=== PATIENT | male | born 1945 | race Caucasian/White ===

== ENCOUNTER 2023-12-22 05:16 | Observation (INO) ==
--- NOTE | 2023-11-18 11:12 | PAT Medication Instructions ---
Medication Instructions Date of Service November 18, 2023 Home Medications Medication Instructions Recorded tizanidine 4 mg tablet 4 mg PO BID PRN muscle spasticity 11/27/22 #30 tabs tramadol 50 mg tablet 50 mg PO Q8H PRN pain #30 tabs 04/02/23 fenofibrate 160 mg tablet 160 mg PO QAM multivitamin 1 tab PO QAM tizanidine 4 mg tablet 4 mg PO BID PRN muscle spasticity dapagliflozin propanediol 10 mg tablet (Farxiga) 10 mg PO HS semaglutide 14 mg tablet (Rybelsus) 14 mg PO QAM tramadol 50 mg tablet 50 mg PO Q8H PRN pain simvastatin 10 mg tablet 10 mg PO QPM bupropion HCl 150 mg tablet,12 hr sustained-release (Wellbutrin SR) 150 mg PO Q AM cholecalciferol (vitamin D3) 1,250 mcg (50,000 unit) capsule 50,000 unit PO UD donepezil 5 mg tablet 5 mg PO HS metformin 1,000 mg tablet 1,000 mg PO BID omega-3 fatty acids 1 cap PO DAILY STOP taking 2 weeks before surgery (or as soon as possible if surgery is within 2 weeks) omega-3 fatty acids 1 cap PO DAILY STOP taking 3 days before surgery dapagliflozin propanediol 10 mg tablet (Farxiga) 10 mg PO HS STOP taking 24 hours before surgery fenofibrate 160 mg tablet 160 mg PO QAM DO NOT take the morning of surgery multivitamin 1 tab PO QAM semaglutide 14 mg tablet (Rybelsus) 14 mg PO QAM cholecalciferol (vitamin D3) 1,250 mcg (50,000 unit) capsule 50,000 unit PO UD metformin 1,000 mg tablet 1,000 mg PO BID Take morning of surgery With a small sip of water, OTHERWISE NOTHING TO EAT OR DRINK AFTER MIDNIGHT: tizanidine 4 mg tablet 4 mg PO BID PRN muscle spasticity (if needed) tramadol 50 mg tablet 50 mg PO Q8H PRN pain (if needed) bupropion HCl 150 mg tablet,12 hr sustained-release (Wellbutrin SR) 150 mg PO QAM Take evening before surgery tizanidine 4 mg tablet 4 mg PO BID PRN muscle spasticity (if needed) tramadol 50 mg tablet 50 mg PO Q8H PRN pain (if needed) simvastatin 10 mg tablet 10 mg PO QPM donepezil 5 mg tablet 5 mg PO HS metformin 1,000 mg tablet 1,000 mg PO BID Other Notes If you have any questions please call us at [phone] or [phone] or [phone] or [phone]
--- NOTE | 2023-11-26 14:25 | Anesthesiology Consultation ---
Date of Service November 26, 2023 Assessment & Plan (1) Encounter for pre-operative examination: - COVID positive via home test 11/21/23. Patient is masked in clinic. He states that his tested positive for COVID test last week and he had onset of runny nose 11/21/23 so completed home test which was positive. He states that 11/22/23 was fatigued and today he feels nearly back to baseline. Radiology and PAT staff were made aware. - check BSG am DOS. - Case discussed with Dr. Valle who advised that if patient's neck pain is improving 1 week prior to surgery he can proceed. - ER 11/19/23 [facility]: "...accidental fall 1 week ago. Patient states he was at a friend's house and stepped into an uneven spot of the pavement causing him to lose his balance...grabbed a hold of a van that was there additionally and then fell a short distance onto his back...head did hit a rock but did not hurt and he did not lose consciousness...last 2 days he has had some intermittent lower neck pain and mid back pain...denies any upper extremity weakness or paresthesias...denies any lower extremity weakness or paresthesias. No change in bowel or bladder function. No difficulty walking...outpatient CT of his head as ordered by PCP...denies any other recurrent fall...does admit to vigorous activity daily. After discussion and examination at bedside, patient sent for CT C-spine and CT thoracic spine. These were reassuring...prior history of a C- spine fracture which was again noted. Patient had a normal nonfocal neuro exam..no extremity weakness or paresthesias. All results were discussed with him at bedside. We did discuss ongoing symptomatic treatment, follow-up with his PCP..." Chart Review Chart Review: Acceptable Risk for Surgery (acceptable to proceed pending improvement in neck pain 1 week prior to surgery-I will contact patient at that time) and Patient seen in Pre Admission Testing History Surgery Operation Date: 12/22/23 09:05 Proposed Procedures p Left Total Knee Arthroplasty - Hamilton Doe MD Height/Weight Height: 5 ft 11 in Weight: 83.8 kg Allergies Allergy/AdvReac Type Severity Reaction Status Date / Time No Known Allergies Allergy Verified 11/17/23 10:17 Medications Home Medications Medication Instructions Recorded Confirmed Last Taken fenofibrate 160 mg tablet 160 mg PO QAM 11/18/20 11/17/23 Unknown multivitamin 1 tab PO QAM 11/18/20 11/17/23 Unknown tizanidine 4 mg tablet 4 mg PO BID PRN muscle spasticity 11/27/22 11/17/23 Unknown #30 tabs dapagliflozin propanediol 10 mg 10 mg PO HS 12/30/22 11/17/23 Unknown tablet (Farxiga) semaglutide 14 mg tablet (Rybelsus) 14 mg PO QAM 12/30/22 11/17/23 Unknown tramadol 50 mg tablet 50 mg PO Q8H PRN pain #30 tabs 04/02/23 11/17/23 Unknown simvastatin 10 mg tablet 10 mg PO QPM 05/13/23 11/17/23 Unknown bupropion HCl 150 mg tablet,12 hr 150 mg PO QAM 11/15/23 11/17/23 Unknown sustained-release (Wellbutrin SR) cholecalciferol (vitamin D3) 1,250 50,000 unit PO UD 11/17/23 11/17/23 Unknown mcg (50,000 unit) capsule donepezil 5 mg tablet 5 mg PO HS 11/17/23 11/17/23 Unknown metformin 1,000 mg tablet 1,000 mg PO BID 11/17/23 11/17/23 Unknown omega-3 fatty acids 1 cap PO DAILY 11/17/23 11/17/23 Unknown Past Medical History Medical History Anxiety BPH (benign prostatic hyperplasia) Diabetes mellitus, type 2 NIDDM Diabetic peripheral neuropathy legs History of bladder stone History of COVID-19 (~2021) home test, resolved Hyperlipidemia Kidney stones sx Osteoarthritis 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 stallings, [place] Patient denies h/o stroke, seizures, heart attack, heart failure, HTN, blood clots/DVTs or blood transfusions. 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 History of prostate [place] [facility] [place] of tonsillectomy S/P eye surgery Left eye "leaking" repair S/P left knee arthroscopy Status post laser lithotripsy of ureteral calculus Past Anesthesia History No Family Hx of Anesthesia Complications and Other (post-op urinary retention after procedure for renal stones) History of PONV No Hx of PONV and No Hx of Motion Sickness Social History Smoking Status: Former smoker tobacco type: cigarettes Smoking cigarettes per day: 1/2 ppd Do You Dip or Chew Tobacco: No Smoking End Date: 50 years ago Hx Alcohol Use: Yes Alcohol type: beer alcohol intake frequency: other Alcohol Intake Frequency Comment: once per week Hx Substance Use: Yes substance use type: former substance user and marijuana Last Used Substance Other:: remote hx. Review of Systems Snoring, denies witnessed apneas. Patient denies chest pain, shortness of breath or dyspnea on exertion. Physical Exam Vital Signs Vitals BP 116/70 P 53 SP02 98% on RA RESP 18 Physical Patient resting comfortably in chair in no acute distress, alert and oriented, responding appropriately throughout visit Full cervical extension range of motion without pain TMD 3.5 finger breadths Dentition: several missing teeth, denies chipped or loose teeth, caps/crowns, implants or bridges Lungs: normal respiratory effort. Good air movement, clear throughout to auscultation, no adventitious breath sounds Cardiac: regular rate and rhythm, no murmurs noted Carotid arteries: negative bruit bilat Lab Results Anesthesia Preop Results Results Anesthesia Widget: WBC 5.44 K/ul (4.8-10.8) 11/26/23 Hgb 14.8 g/dl (14.0-18.0) 11/26/23 Hct 44.3 % (42.0-52.0) 11/26/23 Plt 217 K/uL (130-400) 11/26/23 Na 140 mmol/L (136-145) 11/26/23 K 4.0 mmol/L (3.5-5.1) 11/26/23 Cl 106 mmol/L (98-107) 11/26/23 CO2 28 mmol/L (21-32) 11/26/23 BUN 25 mg/dl (6-23) H 11/26/23 Creat 1.02 mg/dl (0.6-1.4) 11/26/23 Glucose Level 130 mg/dl (70-99(Fasting)) H 11/26/23 PT 11.3 Seconds (9.0-12.0) 11/26/23 PTT 26 Seconds (21-31) 11/26/23 INR 1.0 (0.9-1.1) 11/26/23 HA1c 7.4 % (4.5-5.6) H 11/26/23 Urine Color Yellow 11/26/23 Urine Appearance Clear (Clear) 11/26/23 Urine pH 6.0 (4.5-7.5) 11/26/23 Urine Specific [place] 1.028 (1.000-1.030) 11/26/23 Urine Protein Negative (Negative) 11/26/23 Urine Glucose (UA) 3+ (Negative) H 11/26/23 Urine Ketones Negative (Negative) 11/26/23 Urine Blood Negative (Negative) 11/26/23 Urine Nitrite Negative (Negative) 11/26/23 Urine Bilirubin Negative (Negative) 11/26/23 Urine Urobilinogen Negative (Negative) 11/26/23 Urine Leukocyte Esterase Negative (Negative) 11/26/23 Blood Type A Negative 11/26/23 Antibody Screen NEGATIVE 11/26/23 Testing Electrocardiogram Date: 05/25/23 Sinus bradycardia, rate 57 bpm Left anterior fascicular block Chest X-Ray Date: 11/26/23 No acute cardiopulmonary findings. Cervical Spine Date: 11/19/23 No evidence of acute bony injury. Chronic degenerative changes and nonunited type II odontoid fracture again seen. Other Testing Thoracic spine CT 11/19/23 No fractures within the thoracic spine. Head CT 11/15/23 No acute intracranial abnormality.
--- NOTE | 2023-11-29 11:15 | History & Physical Report ---
Date of Service November 29, 2023 Assessment & Plan (1) Left knee DJD: Plan: PRE-OP Diagnosis: Left knee osteoarthritis Planned Procedure: Left total knee arthroplasty Plan: Patient is scheduled to undergo this procedure at the [facility] with Dr. Doe on December 22, 2023. Risks and complications of the procedure such as: Infection, bleeding, pain, scarring, nerve blood vessel damage, weakness, wound problems, stiffness, incomplete rel ief of symptoms, hardware failure, hardware loosening, wear, fracture, tendon or ligament injury, blood clots, embolism, cardiac, stroke and were explained to the patient at his visit today and informed consent for the procedure was obtained. We will need to obtain preoperative medical clearance from the patient's primary care provider. He has that appointment scheduled for November 30. Patient is scheduled to meet with anesthesia at the hospital later today. While there he will obtain a CBC with differential, complete metabolic panel, PT/INR, blood type and screen, urinalysis, urine culture and sensitivity, EKG and a chest x-ray. During today's visit we reviewed the total knee packet. I provided the patient with paperwork to obtain obtaining a handicap placard for his vehicle. I provided him with information about lectures offered by [facility] in regards to joint replacement surgery. Patient has a walker that he will bring with him on the day of surgery. I recommended that he purchase a shower chair and raised toilet seat. We discussed discharge planning from the hospital. Patient states she will most likely do in-home physical therapy for the first 2 weeks before transitioning to outpatient physical therapy. I advised the patient that he will be provided with a prescription for narcotic pain medication for postoperative pain control. We will have him on Eliquis twice daily for the first 30 days postoperatively for blood clot prevention. Patient will also be provided with an antibiotic for postoperative infection prophylaxis. Patient is scheduled for 2-week postoperative follow-up visit with Michele on January 06, 2024. This chart was completed utilizing [employer] voice recognition software. Grammatical errors, random word insertions, pronoun errors, and in complete sentences are an occasional consequence of the system. Any questions or concerns about the content, text, or information contained within the body of this dictation should be addressed directly to the physician for clarification. History of Present Illness Chief Complaint: Chief Complaint: Left knee pain Primary Care Provider: Nancy Angel MD History of Present Illness (including history relevant to procedure): This 78-year-old male presents to the clinic today for his preoperative history and physical. Patient complains of a 5 to 6-year history of medial sided left knee pain that he has been managing with Euflexxa injections. He states that he was scheduled to undergo a total right knee replacement back in 2020 but had to postpone due to family issues. Patient states he has visible malalignment of his left knee. He states that the Euflexxa injections seem to be effective for about 4 to 5 months. He feels that the malalignment in the knee is affecting his gait and also contributing to some pain in his right knee. He is elected proceed with surgical intervention at this time. Review Of Systems: A 12 point review of systems was performed is unremarkable except for those things stated in the HPI past medical history. 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 6 mm anterolisthesis L4 on L5 is new from prior. Moderate to severe facet arthrosis of the mid to lower lumbar spine. Multilevel intervertebral disc space narrowing, moderate at L3-L4 and L4-L5. Moderate spondylitic spurring.IMPRESSION:1. No acute fracture identified.2. Grade 1 anterolisthesis L4 on L5 likely secondary to chronic facet disease.3. Degenerative changes as above. 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 Extensive osteophytosis with bony erosion, predominantly involving the navicular, middle and lateral cuneiforms. Probable subluxation of the right fourth and fifth tarsometatarsal joints. 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 Allergies and Sensitivities: NKA Current Home Meds: (Last Updated 11/25 12:56) buPROPion (Wellbutrin SR 150 mg/12 hours oral tablet, extended release) 150 mg PO Daily dapagliflozin (Farxiga 10 mg oral tablet) 10 mg PO Daily diabetes supplies (FreeStyle Lite Test Strips 100 ct) use to test blood sugar 1--2 times per day diabetes supplies (FreeStyle Crane Lite Glucose Monitor) use to check blood sugar donepezil (Aricept 5 mg oral tablet) 5 mg PO qhs fenofibrate (fenofibrate 160 mg oral tablet) 160 mg PO Daily metFORMIN (metFORMIN 1000 mg oral tablet) TAKE 1 TABLET BY MOUTH TWO TIMES DAILY multivitamin 1 tab PO Daily omega-3 polyunsaturated fatty acids (Fish Oil 1000 mg oral capsule) semaglutide (Rybelsus 14 mg oral tablet) 14 mg PO Daily Take 30-60 min prior to first meal of the day simvastatin (simvastatin 40 mg oral tablet) 40 mg PO qhs sodium hyaluronate (Euflexxa 10 mg/mL intra-articular solution) 20 mg intra- articular q7days L KNEE DJD M17.12 traMADol (traMADol 50 mg oral tablet) 50 mg PO q6h PRN: as needed for pain not to exceed 400 mg/day unlisted medication (FREESTYLE LITE TEST STRIP) use to check blood sugar Initial Wt: 11/25 83.4 kg 183 lb Allergies Allergy/AdvReac Type Severity Reaction Status Date / Time No Known Allergies Allergy Verified 11/17/23 10:17 Home Medications Medication Instructions Recorded Confirmed Type fenofibrate 160 mg tablet 160 mg PO QAM 11/18/20 11/17/23 History multivitamin 1 tab PO QAM 11/18/20 11/17/23 History tizanidine 4 mg tablet 4 mg PO BID PRN muscle spasticity 11/27/22 11/17/23 Rx #30 tabs dapagliflozin propanediol 10 mg 10 mg PO HS 12/30/22 11/17/23 History tablet (Farxiga) semaglutide 14 mg tablet (Rybelsus) 14 mg PO QAM 12/30/22 11/17/23 History tramadol 50 mg tablet 50 mg PO Q8H PRN pain #30 tabs 04/02/23 11/17/23 Rx simvastatin 10 mg tablet 10 mg PO QPM 05/13/23 11/17/23 History bupropion HCl 150 mg tablet,12 hr 150 mg PO QAM 11/15/23 11/17/23 History sustained-release (Wellbutrin SR) cholecalciferol (vitamin D3) 1,250 50,000 unit PO UD 11/17/23 11/17/23 History mcg (50,000 unit) capsule donepezil 5 mg tablet 5 mg PO HS 11/17/23 11/17/23 History metformin 1,000 mg tablet 1,000 mg PO BID 11/17/23 11/17/23 History omega-3 fatty acids 1 cap PO DAILY 11/17/23 11/17/23 History Past Med/Surg History Problem List Encounter for pre-operative examination Back pain (Acute) Neck pain (Acute) 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 History of prostate surgery reduction of prostate, [facility] S/P left knee arthroscopy History of colonoscopy H/O removal of cyst Neck region History of bladder surgery Cystolithopaxy Status post laser lithotripsy of ureteral calculus S/P eye surgery Left eye "leaking" repair History of detached retina repair Left eye History of cataract surgery R/L History of tonsillectomy Family History Other No family history of adverse response to anesthesia Social History Smoking Status: Former smoker Tobacco Type: Cigarettes Cigarettes Per Day: 1/2 ppd; Second Hand Exposure: No; Do You Dip or Chew Tobacco: No; Hx Alcohol Use: Yes Alcohol type: beer Alcohol Intake Frequency: 2-4 x/Month Hx Substance Use: Yes Last Used Substance Other:: remote hx. Preferred Language: Mohawk Communication Ability: Effective Visual Impairment: No Limitations Hvac Specialist Required: No Beliefs That Will Affect Care: None marital status: Current Living Situation: Spouse current occupational status: retired Feels Safe at Home: Yes Diet: regular during the past year weight has: decreased > 10 lbs Seatbelt Use: always Assistive Devices: Brace/Splint/Immobilizer, Glasses and Other Review of Systems All systems reviewed & are unremarkable except as noted in Subjective Physical Exam Physical Exam: Physical Exam: (relevant to the procedure, including heart and lung evaluation) General: Alert and oriented x 3 with proper grooming and hygiene Eyes: Pupils are equal and reactive to light with accommodation. Extraocular movements are intact Throat: Posterior oropharynx clear with absence of edema, erythema or exudate. Dentition is appropriate Cardiac: Regular rate and rhythm with no murmurs or gallops appreciated Lungs: Clear to auscultation throughout with no wheezing, rales or rhonchi Abdomen: Nonobese, nondistended, nontender with NABS Extremities: Left knee; range of motion is from 10 degrees of extension to 100 degrees of flexion. Patient experiences medial joint line tenderness when the knee is palpated in the flexed position. There is audible crepitation with passive range of motion. Patient has visible varus malalignment. His patella is not mobile due to arthritic change within the patellofemoral joint. He has no varus or valgus laxity with stressing. AP drawer sign and Mary Ann test are negative. Neuro: Cranial nerves II through XII are intact no motor or sensory deficit Skin: Normal in appearance no open skin areas or discharge Results & Data Diagnostic Findings Studies (relevant to the procedure): x-rays of the left knee which shows advanced osteoarthritis of medial and patellofemoral compartments
--- NOTE | 2023-12-22 05:24 | History & Physical Bridge Note ---
Date of Service December 22, 2023 History & Physical Bridge Note I have examined the patient, reviewed the History & Physical and in the interval since the performance of the History & Physical I have noted the following changes of clinical significance:consent and site verified. no changes noted
[2023-12-22] MEDS: ACETAMINOPHEN 500 MG TAB PO SCH ×2 (05:45→14:37)
[2023-12-22] MEDS: LR 60ML/HR IV SCH (05:46)
[2023-12-22] MEDS: FAMOTIDINE 20 MG TAB PO SCH (05:46)
[2023-12-22] MEDS ORDERED: BUPIVACAINE 0.5 % 5 MG/1 ML PF 10ML VIAL ONE (06:20)
[2023-12-22] MEDS ORDERED: EPINEPHrine INJ 1 MG/ML AMP ONE (06:20)
[2023-12-22] MEDS ORDERED: ROPIVACAINE 0.5% 5 MG/ML 30 ML VIAL ONE (06:21)
[2023-12-22] MEDS ORDERED: MIDAZOLAM HCL 1 MG/ML 2ML VIAL ONE (06:32)
[2023-12-22] MEDS ORDERED: fentaNYL citrate PF 100 MCG/2 ML VIAL ONE (06:32)
[2023-12-22] MEDS: TRANEXAMIC ACID 1,000 MG **IV Pre-op IV SCH (06:42)
[2023-12-22] MEDS ORDERED: ORTHO JOINT ANESTHETIC ONE (06:51)
--- OUTSIDE RECORDS SUMMARY | 2023-12-22 06:55 | External Medical Summary | Continuity of Care Document ---
Author Name Unknown Organization [facility] [address] [place], [place] [address] Address [address] [place] [id number] Care Team Providers Care Product Finisher Name Role Phone Isiah Angel Primary Care Physician [phone] [id number] Date[facility]s): 11/26/23 - 11/26/23 [facility] [address] [id number] [facility] [address] [place] [id number] Encounter Diagnosis Primary osteoarthritis of left knee(Discharge Diagnosis) - 11/26/23 Preop examination(Discharge Diagnosis) - 11/26/23 Discharge Disposition: Home or Self Care Attending Physician: DENTON Benton Dennis Referring Physician: MD Nader, Hamilton Bangura Allergies, Adverse Reactions, Alerts No Known Allergies Immunizations Given and Recorded Vaccine Date Status Refusal Reason RSV vaccine preF3, recombinant 03/02/23 Recorded influenza virus vaccine, inactivated 01/12/23 Johnny rded influenza virus vaccine, inactivated 12/31/21 Give n SARS-CoV-2 (COVID-19) mRNA-1273 vaccine 01/12/23 R ecorded SARS-CoV-2 mRNA (Pfizer 12+) bivalent 03/31/22 Rec orded zoster vaccine, inactivated 12/27/21 Recorded zoster vaccine, inactivated 10/22/21 Recorded SARS-CoV-2 mRNA ([id number]) 10/16/21 Re corded SARS-CoV-2 (COVID-19) mRNA BNT-162b2 vax 01/21/21 Recorded SARS-CoV-2 (COVID-19) mRNA BNT-162b2 vax 1 05/31/20 Recorded SARS-CoV-2 (COVID-19) mRNA BNT-162b2 vax 05/20/20 Recorded SARS-CoV-2 (COVID-19) mRNA BNT-162b2 vax 2 05/10/20 Recorded 1Result Comment: 2nd Dose - Lot# [id number], Exp: 09/06/2020 2Result Comment: 1st Dose - Lot# [id number], Exp: 09/06/2020 Medications Aricept 5 mg oral tablet Start: 09/08/23 8:35:00 AM EDT, 1 tab, PO, qhs, Disp# 30 tab, Refills: 5, Pharmacy: [id number] Start Date: 09/08/23 Stop Date: 03/06/24 Status: Ordered Euflexxa 10 mg/mL intra-articular solution Start: 10/06/23 7:42:00 AM EDT, 20 mg =, intra-articular, q7days, Disp# 6 mL, Refills: 0, L KNEE [id number], Note to Pharmacy: 3 syringes for L knee., other Start Date: 10/06/23 Stop Date: 10/27/23 Status: Ordered Farxiga 10 mg oral tablet Start: 12/25/22 9:43:00 AM EDT, 1 tab, PO, Daily, Disp# 90 tab, Refills: 3, Note to Pharmacy: DC 5mg tab, Pharmacy: [id number] Start Date: 12/25/22 Status: Ordered fenofibrate 160 mg oral tablet Start: 06/26/22 4:33:00 PM EST, 1 tab, PO, Daily, Disp# 90 tab, Refills: 3, Pharmacy: [id number] Start Date: 06/26/22 Status: Ordered Fish Oil 1000 mg oral capsule Start: 11/19/23 2:17:00 PM EDT Start Date: 11/19/23 Status: Ordered FreeStyle [place] Lite Glucose Monitor Start: 07/02/22 5:29:00 PM EDT, See Instructions, Disp# 2 supp, use to check blood sugar, Pharmacy: [id number] Start Date: 07/02/22 Status: Ordered FREESTYLE LITE TEST STRIP Start: 09/08/23 8:15:00 AM EDT, FREESTYLE LITE TEST STRIP, eRx Product Type: Supply, See Instructions, Disp# 100 strip, use to check blood sugar, Pharmacy [id number] Start Date: 09/08/23 Status: Ordered FreeStyle Lite Test Strips 100 ct Start: 12/31/21 9:33:00 AM EDT, See Instructions, Disp# 100 each, Refills: 2, use to test blood sugar 1--2 times per day, Pharmacy: [id number] Start Date: 12/31/21 Status: Ordered metFORMIN 1000 mg oral tablet Start: 08/10/23 10:26:00 AM EDT, See Instructions, Disp# 180 tab, Refills: 2, TAKE 1 TABLET BY MOUTHTWO TIMES DAILY, Pharmacy: [id number] Start Date: 08/10/23 Status: Ordered multivitamin Start: 10/22/20 10:33:00 AM EDT, 1 tab, PO, Daily Start Date: 10/22/20 Status: Ordered Rybelsus 14 mg oral tablet Start: 10/13/23 10:44:00 AM EDT, 1 tab, PO, Daily, Disp# 90 tab, Refills: 3, Take 30-60 min prior tofirst meal of the day, Pharmacy: [id number] Start Date: 10/13/23 Status: Ordered simvastatin 40 mg oral tablet Start: 06/14/23 10:03:00 AM EST, 1 tab, PO, qhs, Disp# 90 tab, Refills: 3, Pharmacy: [id number] Start Date: 06/14/23 Status: Ordered traMADol 50 mg oral tablet Start: 05/25/23 12:04:00 PM EST, 1 tab, PO, q6h, Disp# 20 tab, Refills: 0, not to exceed 400 mg/day, PRN: as needed for pain, Pharmacy: [id number] Start Date: 05/25/23 Stop Date: 06/01/23 Status: Ordered Wellbutrin SR 150 mg/12 hours oral tablet, extended release Start: 06/04/23 8:28:00 AM EST, 1 tab, PO, Daily, Disp# 90 tab, Refills: 3, Pharmacy: [id number] Start Date: 06/04/23 Status: Ordered Mental Status 11/26/23 Barriers to Learning one year Hearing de ficit Mandatory Health Literacy Documentation Yes Health Literacy Communication Barriers N ever Primary Language Argentine Problem List Condition Confirmation Course Effective Dates Status H ealth Status Informant Benign prostate hyperplasia Confirmed Active Callus Confirmed Active Cellulitis of left toe Confirmed Active Charcot arthropathy of midfoot Confirmed Active Cognitive changes Confirmed Active Diabetes Confirmed Active Foot pain, right 1 Confirmed Active Hammertoe of left foot Confirmed Active S/P foot surgery, right Confirmed Active Kidney stone Confirmed Active 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 Active Tinea unguium Confirmed Active Primary osteoarthritis of left knee Confirmed Active Osteoarthritis of left knee Confirmed Active Ulcer of left foot due to type 2 diabetes mellitus Confirmed Active Diabetic ulcer of toe of right foot Confirmed Active 1right Diagnosis Diagnosis Type Effective Dates Health Status Clinical Service Informant Primary osteoarthritis of left knee Discharge Diagnosis 11/26/23 Preop examination Discharge Diagnosis 11/26/23 Procedures Procedure Date Related Diagnosis Body Site Status Amputation 1 05/28/23 Completed X-ray of spine 2 11/20/22 Complete d X-ray of right foot 3 07/02/21 Com pleted 1right third toe 2FINDINGS: Mild lumbar levoscoliosis may be positional. 6 mm anterolisthesis L4 on L5 is new from prior. Moderate to severe facet arthrosis of the mid to lower lumbar spine. Multilevel intervertebral disc spacenarrowing, moderate at L3-L4 and L4- L5. Moderate spondylitic spurring. IMPRESSION: 1. No acute fracture identified. 2. Grade 1 anterolisthesis L4 on L5 likely secondary to chronic facet disease. 3. Degenerative changes as above. 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 Extensive osteophytosis with bony erosion, predominantly involving the navicular, middle and lateral cuneiforms. Probable subluxation of the right fourth and fifth tarsometatarsal joints. 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 Vital Signs Most recent to oldest [Reference Range]: 1 Height 181.5 cm (11/26/23 12:56 PM) Patient Weight 83.4 kg (11/26/23 12:56 PM) Body Mass Index 25.32 kg/m2 (11/26/23 12:56 PM) Temperature [36.5-37.9 DegC] 36.2 DegC *LOW* (11/26/23 12:56 PM) Heart Rate 49 bpm (11/26/23 12:56 PM) Blood Pressure 116/62mmHg (11/26/23 12:56 PM) Social History Social History Type Response Smoking Status Never smoked cigaret dar Sex Male Sex Representation Male (finding) Patient Care team information Care Team Personnel Name: MD Stanley, Isiah Meyer Position: Physician Member Role: Primary Care Provider Address: [address] [place] [address] [place] Care Team Related Persons Name: GABY GARCIA I
--- OUTSIDE RECORDS SUMMARY | 2023-12-22 06:55 | External Medical Summary | Continuity of Care Document ---
Author Name Unknown Organization [facility] [address] Address [address] [facility] [place] [id number] Care Team Providers Care Plastic Die Maker Apprentice Name Role Phone Isiah Angel Primary Care Physician [phone] [id number] Date[facility]s): 12/06/23 - 12/06/23 [facility] [address] [facility] [address] [place], [place] [phone] Encounter Diagnosis Encounter for other preprocedural examination(Final) - Type 2 diabetes mellitus without complications(Final) - Discharge Disposition: Home or Self Care Attending Physician: Jayant Ocasio DO, Mariana Annette Referring Physician: aJyant Ocasio DO, Mariana Annette Allergies, Adverse Reactions, Alerts No Known Allergies Immunizations Given and Recorded Vaccine Date Status Refusal Reason RSV vaccine preF3, recombinant 03/02/23 Recorded influenza virus vaccine, inactivated 01/12/23 Johnny rded influenza virus vaccine, inactivated 12/31/21 Give n SARS-CoV-2 (COVID-19) mRNA-1273 vaccine 01/12/23 R ecorded SARS-CoV-2 mRNA (Pfizer 12+) bivalent 03/31/22 Rec orded zoster vaccine, inactivated 12/27/21 Recorded zoster vaccine, inactivated 10/22/21 Recorded SARS-CoV-2 mRNA ([id number]) 10/16/21 Re corded SARS-CoV-2 (COVID-19) mRNA BNT-162b2 vax 01/21/21 Recorded SARS-CoV-2 (COVID-19) mRNA BNT-162b2 vax 1 05/31/20 Recorded SARS-CoV-2 (COVID-19) mRNA BNT-162b2 vax 05/20/20 Recorded SARS-CoV-2 (COVID-19) mRNA BNT-162b2 vax 2 05/10/20 Recorded 1Result Comment: 2nd Dose - Lot# [id number], Exp: 09/06/2020 2Result Comment: 1st Dose - Lot# [id number], Exp: 09/06/2020 Medications Aricept 5 mg oral tablet Start: 09/08/23 8:35:00 AM EDT, 1 tab, PO, qhs, Disp# 30 tab, Refills: 5, Pharmacy: [id number] Start Date: 09/08/23 Stop Date: [...] Note to Pharmacy: DC 5mg tab, Pharmacy: [id number] Start Date: 12/25/22 Status: Ordered fenofibrate 160 mg oral tablet Start: 06/26/22 4:33:00 PM EST, 1 tab, PO, Daily, Disp# 90 tab, Refills: 3, Pharmacy: [id number] Start Date: 06/26/22 Status: Ordered Fish Oil 1000 mg oral capsule Start: 11/19/23 2:17:00 PM EDT Start Date: 11/19/23 Status: Ordered FreeStyle [place] Lite Glucose Monitor Start: 07/02/22 5:29:00 PM EDT, See Instructions, Disp# 2 supp, use to check blood sugar, Pharmacy: [id number] Start Date: 07/02/22 Status: Ordered FREESTYLE LITE TEST STRIP Start: 12/01/23 11:14:00 AM EDT, FREESTYLE LITE TEST STRIP, See Instructions, Disp# 100 strip, Refills: 0, USE TO CHECK BLOOD SUGAR, Pharmacy [id number] Start Date: 12/01/23 Status: Ordered FREESTYLE LITE TEST STRIP Start: 09/08/23 8:15:00 AM EDT, FREESTYLE LITE TEST STRIP, eRx Product Type: Supply, See Instructions, Disp# 100 strip, use to check blood sugar, Pharmacy [id number] Start Date: 09/08/23 Status: Ordered FreeStyle Lite Test Strips 100 ct Start: 12/31/21 9:33:00 AM EDT, See Instructions, Disp# 100 each, Refills: 2, use to test blood sugar 1--2 times per day, Pharmacy: [facility] Start Date: 12/31/21 Status: Ordered metFORMIN 1000 mg oral tablet Start: 08/10/23 10:26:00 AM EDT, See Instructions, Disp# 180 tab, Refills: 2, TAKE 1 TABLET BY MOUTHTWO TIMES DAILY, Pharmacy: [id number] Start Date: 08/10/23 Status: Ordered multivitamin Start: 10/22/20 10:33:00 AM EDT, 1 tab, PO, Daily Start Date: 10/22/20 Status: Ordered Rybelsus 14 mg oral tablet Start: 10/13/23 10:44:00 AM EDT, 1 tab, PO, Daily, Disp# 90 tab, Refills: 3, Take 30-60 min prior tofirst meal of the day, Pharmacy: [id number] Start Date: 10/13/23 Status: Ordered simvastatin 40 mg oral tablet Start: 06/14/23 10:03:00 AM EST, 1 tab, PO, qhs, Disp# 90 tab, Refills: 3, Pharmacy: [id number] Start Date: 06/14/23 Status: Ordered traMADol 50 mg oral tablet Start: 05/25/23 12:04:00 PM EST, 1 tab, PO, q6h, Disp# 20 tab, Refills: 0, not to exceed 400 mg/day, PRN: as needed for pain, Pharmacy: [id number] Start Date: 05/25/23 Stop Date: 06/01/23 Status: Ordered Wellbutrin SR 150 mg/12 hours oral tablet, extended release Start: 06/04/23 8:28:00 AM EST, 1 tab, PO, Daily, Disp# 90 tab, Refills: 3, Pharmacy: [id number] Start Date: 06/04/23 Status: Ordered Problem List Condition Confirmation Course Effective Dates [...] toe of right foot Confirmed Active 1right Procedures Procedure Date Related Diagnosis Body Site [...] likely chronic and favor a neuropathic arthropathy. Results Laboratory List Name Date Hemoglobin A1C (HEMOGLOBIN, A1C) 12/06/23 Most recent to oldest [Reference Range]: 1 Estimated Average Glucose 169 mg/dL 1 (12/06/23 9:13 AM) HbA1c [4.0-6.0 %] 7.5 % *HI* (12/06/23 9:13 AM) 1Result Comment: Testing Performed By: Dept of Pathology [facility] [address], [address], [place] [address] Social History Social History Type Response Smoking Status Never smoked cigaret dar Sex Male Sex Representation Male (finding) Patient Care team information Care Team Personnel Name: MD Stanley, Isiah Meyer Position: Physician Member Role: Primary Care Provider Address: [address] [place] [address], [place] [address] [place] Care Team Related Persons Name: GABY GARCIA I
--- OUTSIDE RECORDS SUMMARY | 2023-12-22 06:55 | External Medical Summary | Continuity of Care Document ---
Author Name Unknown Organization [address] Address [address] [place] [id number] Care Team Providers Care Fur Repairer Name Role Phone Stanley Isiah Meyer Primary Care Physician [phone] Encounter [facility] [id number] Date(s): 11/29/23 - 11/29/[address] Josh [address], [address] [place] [address] [phone] Encounter Diagnosis Preop examination(Discharge Diagnosis) - 11/29/23 Diabetes(Discharge Diagnosis) - 11/29/23 Discharge Disposition: Home or Self Care Attending Physician: Jayant Ocasio DO, Mariana Annette Referring Physician: Jayant Ocasio DO, Mariana Annette Allergies, Adverse Reactions, Alerts No Known Allergies Assessment and Plan Extracted from: Title:Office Visit Note Author:Jayant Ocasio DO, Mariana Annette Date:11/29/23 1.Preop examination Patient seen for kailee-operative risk stratification for left TKA. Patient reports no cardiac symptoms at rest or on exertion, no history of ischemic heart disease, CHF, CVD, diabetes, EtOH/drug abuse, recent anticoagulant or antithrombotic use, personal or family history of coagulopathy, or CKD. Reports no history of recent stress test, cardiac catheterization, or coronary revascularization. Reports being able to achieve4-10METs of activity during climbing stairs/walking uphill. This patient's does not have any identifiable cardiac risk factors. According to the RCRI, this number of risk factors stratifies the patient to Class I, which carries with it a0.4% risk of major CV complications, such as MT, CHF, or malignant arrhythmia (Circulation 1999; 100:1043). 2.Diabetes Will get A1c Immunizations Given and Recorded Vaccine Date Status Refusal Reason RSV vaccine preF3, recombinant 03/02/23 Recorded influenza virus vaccine, inactivated 01/12/23 Johnny rded influenza virus vaccine, inactivated 12/31/21 Give n SARS-CoV-2 (COVID-19) mRNA-1273 vaccine 01/12/23 R ecorded SARS-CoV-2 mRNA (Pfizer 12+) bivalent 03/31/22 Rec orded zoster vaccine, inactivated 12/27/21 Recorded zoster vaccine, inactivated 10/22/21 Recorded SARS-CoV-2 mRNA (iroisukvidx-oneo-pod) 10/16/21 Re corded SARS-CoV-2 (COVID-19) mRNA BNT-162b2 vax 01/21/21 Recorded SARS-CoV-2 (COVID-19) mRNA BNT-162b2 vax 1 05/31/20 Recorded SARS-CoV-2 (COVID-19) mRNA BNT-162b2 vax 05/20/20 Recorded SARS-CoV-2 (COVID-19) mRNA BNT-162b2 vax 2 05/10/20 Recorded 1Result Comment: 2nd Dose - Lot# [id number], Exp: 09/06/2020 2Result Comment: 1st Dose - Lot# [id number], Exp: 09/06/2020 Medications Aricept 5 mg oral tablet Start: 09/08/23 8:35:00 AM EDT, 1 tab, PO, qhs, Disp# 30 tab, Refills: 5, Pharmacy: [id number] Start Date: 09/08/23 Stop Date: [...] Note to Pharmacy: DC 5mg tab, Pharmacy: [id number] Start Date: 12/25/22 Status: Ordered fenofibrate 160 mg oral tablet Start: 06/26/22 4:33:00 PM EST, 1 tab, PO, Daily, Disp# 90 tab, Refills: 3, Pharmacy: [id number] Start Date: 06/26/22 Status: Ordered Fish Oil 1000 mg oral capsule Start: 11/19/23 2:17:00 PM EDT Start Date: 11/19/23 Status: Ordered FreeStyle [place] Lite Glucose Monitor Start: 07/02/22 5:29:00 PM EDT, See Instructions, Disp# 2 supp, use to check blood sugar, Pharmacy: [id number] Start Date: 07/02/22 Status: Ordered FREESTYLE LITE TEST STRIP Start: 12/01/23 11:14:00 AM EDT, FREESTYLE LITE TEST STRIP, See Instructions, Disp# 100 strip, Refills: 0, USE TO CHECK BLOOD SUGAR, Pharmacy [id number] Start Date: 12/01/23 Status: Ordered FREESTYLE LITE TEST STRIP Start: 09/08/23 8:15:00 AM EDT, FREESTYLE LITE TEST STRIP, eRx Product Type: Supply, See Instructions, Disp# 100 strip, use to check blood sugar, Pharmacy [id number] Start Date: 09/08/23 Status: Ordered FreeStyle Lite Test Strips 100 ct Start: 12/31/21 9:33:00 AM EDT, See Instructions, Disp# 100 each, Refills: 2, use to test blood sugar 1--2 times per day, Pharmacy: [id number] Start Date: 12/31/21 Status: Ordered metFORMIN 1000 mg oral tablet Start: 08/10/23 10:26:00 AM EDT, See Instructions, Disp# 180 tab, Refills: 2, TAKE 1 TABLET BY MOUTHTWO TIMES DAILY, Pharmacy: [id number] Start Date: 08/10/23 Status: Ordered multivitamin Start: 10/22/20 10:33:00 AM EDT, 1 tab, PO, Daily Start Date: 10/22/20 Status: Ordered Rybelsus 14 mg oral tablet Start: 10/13/23 10:44:00 AM EDT, 1 tab, PO, Daily, Disp# 90 tab, Refills: 3, Take 30-60 min prior tofirst meal of the day, Pharmacy: [id number] Start Date: 10/13/23 Status: Ordered simvastatin 40 mg oral tablet Start: 06/14/23 10:03:00 AM EST, 1 tab, PO, qhs, Disp# 90 tab, Refills: 3, Pharmacy: [id number] Start Date: 06/14/23 Status: Ordered traMADol 50 mg oral tablet Start: 05/25/23 12:04:00 PM EST, 1 tab, PO, q6h, Disp# 20 tab, Refills: 0, not to exceed 400 mg/day, PRN: as needed for pain, Pharmacy: [id number] Start Date: 05/25/23 Stop Date: 06/01/23 Status: Ordered Wellbutrin SR 150 mg/12 hours oral tablet, extended release Start: 06/04/23 8:28:00 AM EST, 1 tab, PO, Daily, Disp# 90 tab, Refills: 3, Pharmacy: [id number] Start Date: 06/04/23 Status: Ordered Mental Status 11/29/23 Barriers to Learning one year Hearing de ficit Mandatory Health Literacy Documentation Yes Health Literacy Communication Barriers N ever Primary Language Qatari Problem List Condition Confirmation Course Effective Dates [...] Effective Dates Health Status Clinical Service Informant Diabetes Discharge Diagnosis 11/29/23 Non-Specified Preop examination Discharge Diagnosis 11/29/23 Non-Specified Procedures Procedure Date Related Diagnosis Body Site [...] Most recent to oldest [Reference Range]: 1 Patient Weight 82 kg (11/29/23 11:19 AM) Heart Rate 56 bpm (11/29/23 11:19 AM) Respiratory Rate 20 br/min (11/29/23 11:19 AM) Blood Pressure 120/78mmHg (11/29/23 11:19 AM) Social History Social History Type Response Smoking Status Never smoked cigaret dar Sex Male Sex Representation Male (finding) [facility] Outpt Note * Jayant Ocasio DO, Mariana Annette: PERFORM Event Display: [facility] Outpt Note Authored Date: Chief Complaint preop left knee replacement 12/21 w/ Dr. Doe History of Present Illness PRE-OPERATIVE EVALUTION Requested by:Dr. Doe Planned surgery: Left TKA [_]High risk(aortic, peripheral vascular, cardiac, major transplant, lung resection) [ x ]Intermediate risk(intraperitoneal, intrathoracic, CEA, head/ neck, ortho, urologic, prostate) [ ]Low risk(endoscopic w/ BX, superficial, EGD, cataracts, breast, ambulatory, BTL, D&C, radha, T&A, lysis of adhesions, hernia, OCHOA, rhinoplasty ) Exercise tolerance: 3-6 METS [Moderate]:fast walk; stationery bike; fast dance; rake leaves; garden; push mowing Bleeding tendency:Denies h/o bleeding disorders or blood clots Substance use:None Prior anesthesia:No history of anesthesia complications with prior surgeries Revised Cardiac Risk Index: [0] Higher Risk Surgery (intraperitoneal, intrathoracic, supra-inguinal vascular) [0] Ischemic Heart Disease [0] History of CHF [0] History of cerebrovascular disease [0] Insulin therapy for DM [0] Pre-op Cr >2 Total Score= 0 He had a CXR that was normal, CBC, CMP, PT/INR on 11/26/23 that were unremarkable. Most recent A1con 09/07/23 was 7.3 He had a covidinfection last week, recovered, having some fatigue. Physical Exam Vitals & Measurements HR:56(Monitored) RR:20 BP:120/78 SpO2:97% WT:82kg WT:82.000kg(Dosing) PHQ2 Data(Data Documented on:11/29/2023 11:17) Emotional health assessment NEGATIVE General: _Alert and oriented, No acute distress Cardiovascular: _Normal rate, Regular rhythm, No murmur, No gallop. Respiratory: _Lungs are clear to auscultation, Respirations are non-labored, Breath sounds are equal Psych: Mood-affect congruence. Reports no SI/HI. Speech is of normal pace and content Assessment/Plan 1.Preop examination Patient seen for kailee-operative risk stratification for left TKA. Patient reports no cardiac symptoms at rest or on exertion, no history of ischemic heart disease, CHF, CVD, diabetes, EtOH/drug abuse, recent anticoagulant or antithrombotic use, personal or family history of coagulopathy, or CKD. Reports no history of recent stress test, cardiac catheterization, or coronary revascularization. Reports being able to achieve4-10METs of activity during climbing stairs/walking uphill. This patient's does not have any identifiable cardiac risk factors. According to the RCRI, this number of risk factors stratifies the patient to ClassI, which carries with it a0.4% risk of major CV complications, such as MT, CHF, or malignant arrhythmia (Circulation 1999; 100:1043). 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 Ulcer of left foot due to type 2 diabetes mellitus Procedure/Surgical History Amputation| Service Date: 05/28/2023X-ray of spine| Service Date: 11/20/2022X-ray of rightfoot| Service Date: 07/02/2021 Medications buPROPion(Wellbutrin SR 150 mg/12 hours oral tablet, extended release), 150 mg= 1 tab, PO, Daily, 3refills dapagliflozin(Farxiga 10 mg oral tablet), 10 mg= 1 tab, PO, Daily, 3 refills diabetes supplies(natue Lite Glucose Monitor), See Instructions diabetes supplies([employer] [place] [employer] Test Strips 100 ct), See Instructions, 2 refills donepezil(Aricept 5 mg oral tablet), 5 mg= 1 tab, PO, qhs, 5 refills fenofibrate(fenofibrate 160 mg oral tablet), 160 mg= 1 tab, PO, Daily, 3 refills metFORMIN(metFORMIN 1000 mg oral tablet), See Instructions, 2 refills multivitamin, 1 tab, PO, Daily omega-3 polyunsaturated fatty acids(Fish Oil 1000 mg oral capsule) semaglutide(Rybelsus 14 mg oral tablet), 14 mg= 1 tab, PO, Daily, 3 refills simvastatin(simvastatin 40 mg oral tablet), 40 mg= 1 tab, PO, qhs, 3 refills sodium hyaluronate(Euflexxa 10 mg/mL intra-articular solution), 20 mg, intra- articular, q7days traMADol(traMADol 50 mg oral tablet), 50 mg= 1 tab, PO, q6h, PRN unlisted medication(FREESTYLE LITE TEST STRIP), See Instructions Allergies NKA Social History Smoking Status Never smoked cigarettes Immunizations Vaccine Date Status RSV vaccine preF3, recombinant 03/02/2023 Recorded influenza virus vaccine, inactivated 01/12/2023 Recorded SARS-CoV-2 (COVID-19) mRNA-1273 vaccine 01/12/2023 Recorded SARS-CoV-2 mRNA (Pfizer 12+) bivalent 03/31/2022 Recorded influenza virus vaccine, inactivated 12/31/2021 Given zoster vaccine, inactivated 12/27/2021 Recorded zoster vaccine, inactivated 10/22/2021 Recorded SARS-CoV-2 mRNA (qeqwejewwbm-atra-ath) 10/16/2021 Recorded SARS-CoV-2 (COVID-19) mRNA BNT-162b2 vax 01/21/2021 Recorded SARS-CoV-2 (COVID-19) mRNA BNT-162b2 vax 05/31/2020 Recorded Comments : 2nd Dose - Lot# [id number], Exp: 09/06/2020 SARS-CoV-2 (COVID-19) mRNA BNT-162b2 vax 05/20/2020 Recorded SARS-CoV-2 (COVID-19) mRNA BNT-162b2 vax 05/10/2020 Recorded Comments : 1st Dose - Lot# [id number], Exp: 09/06/2020 Recommendations Health Maintenance Pending(in the next year) OverDue Adult Influenza Vaccine due10/17/23and every 1year Due Adult Social Determinants of Health Screening due11/29/23Unknown Frequency Adult Tdap/Td Vaccine due11/29/23Unknown Frequency Falls Plan of Care due11/29/23Unknown Frequency Hepatitis C Screening due11/29/23One-time only Medicare Annual Wellness Visit due11/29/23and every 1year Pneumococcal Vaccine Older Adults due11/29/23One-time only Due In Future Diabetes Management A1c not due until09/07/24and every 366day Satisfied(in the past 1 year) Satisfied Adult COVID-19 Vaccination on01/12/23.Satisfied by DIANE Bah Sara Adult Influenza Vaccine on01/12/23.Satisfied by DIANE Bah Sara Body Mass Index on11/26/23.Satisfied by DIANE Sharif Cassidy Diabetes Management A1c on09/07/23.Satisfied by Contributor_system, [id number] Diabetes Nephropathy Management on05/04/23.Satisfied by Contributor_system, [email or web address] Diabetic Eye Exam on03/15/23.Satisfied by WILVER Rosenthal Angela Lipid Screening on05/04/23.Satisfied by Contributor_system, [id number] Electronic Signature on File Electronically Reviewed/Signed by: Zoë Ocasio DO Author Signature Dt/Tm:11/29/2023 11:39 AM Department of Family Medicine [facility] Patient Care team information Care Team Personnel Name: MD Stanley, Isiah Meyer Position: Physician Member Role: Primary Care Provider Address: [address] [place] [address] Care Team Related Persons Name: GABY GARCIA I"
[2023-12-22] MEDS: ceFAZolin 2000MG 2,000 MG/15 ML SYR IV SCH ×2 (06:59→16:09)
[2023-12-22] MEDS: ROPIVACAINE 0.5% HCL/PF 246 MG, Ketorolac (*for OR use only*) 30 MG, EPINEPHrine 30MG/3... INFIL SCH (07:19)
[2023-12-22] MEDS ORDERED: PROPOFOL IV EMULSION 10 MG/ML 20 ML VIAL IV ONE (07:33)
[2023-12-22] MEDS ORDERED: HYDROmorphone INJ 1 MG/ML SYRINGE IV PRN (07:45)
[2023-12-22] MEDS ORDERED: ONDANSETRON INJ 2 MG/ML 2 ML VIAL IV PRN ×2 (07:45→10:57)
[2023-12-22] MEDS ORDERED: NALOXONE HCL 0.4 MG/1 ML VIAL/CARP IV PRN ×2 (07:45→10:57)
[2023-12-22] MEDS ORDERED: ATROPINE SULFATE 0.1 MG/ML 10ML SYR IV PRN (07:45)
[2023-12-22] MEDS ORDERED: PROMETHAZINE HCL 6.25 MG in SODIUM CHLORIDE 0.9% 50 ML IV PRN (07:45)
[2023-12-22] MEDS ORDERED: fentaNYL citrate PF 100 MCG/2 ML VIAL IV PRN (07:45)
[2023-12-22] MEDS ORDERED: ePHEDrine sulfate 50 MG/ML AMP IV PRN (07:45)
[2023-12-22] MEDS ORDERED: FLUMAZENIL 0.1 MG/1 ML 10 ML VIAL IV PRN (07:45)
[2023-12-22] MEDS: TRANEXAMIC ACID 1,000 MG **IV Intra-op IV SCH (08:09)
--- NOTE | 2023-12-22 08:40 | Post Operative Brief Note ---
Immediate Post Op Note Date of Surgery December 22, 2023 Pre & Post Diagnosis Operation Date: 12/22/23 07:00 <No data on this case meets the specified criteria> Osteoarthritis with flexion varus deformity left knee pre and postop diagnosis same I identified the patient and participated in the time-out.: Yes Procedure Operation Date: 12/22/23 07:00 <No data on this case meets the specified criteria> Cemented left total knee replacement Surgeon Hamilton Doe MD In Flight Crew Member Maryana/Jeffy Estimated Blood Loss 25 Findings Consistent with Post-Op Diagnosis Severe medial disease advanced patellofemoral disease marked flexion varus alignment Fluids See anesthesia report Complications None
--- NOTE | 2023-12-22 08:43 | Operative Report ---
Post Operative Report Pre & Post Diagnosis Operation Date: 12/22/23 07:00 <No data on this case meets the specified criteria> Osteoarthritis advanced left knee with varus flexion deformity pre and postop diagnosis same I identified the patient and participated in the time-out.: Yes Procedure Operation Date: 12/22/23 07:00 <No data on this case meets the specified criteria> Cemented left total knee replacement Surgeon Hamilton Doe MD Form Builder Helper Maryana/Jeffy Estimated Blood Loss 25 Findings Consistent with Post-Op Diagnosis Severe medial and advanced patellofemoral disease with flexion varus deformity left knee Fluids See anesthesia report Specimens Bone pathology Drains None Complications None Indications Severe pain advanced x-ray disease Description of Procedure After the patient was appropriate notified site verified consent verified antibiotics confirmed as being given the left lower extremity prepped and draped in usual routine fashion. Tourniquet was inflated to 275 mmHg after exsanguination limb with a rubber urgent branch for total of 62 minutes. Midline exposure was utilized parapatellar arthrotomy performed advanced synov ectomy was completed due to the hard thickened synovium. Osteophytes resected. Distal femur entered. Cruciates resected tibia subluxated menisci resected. Distal femur resected 11 mm proximal tibia 4 mm the extension gap was excellent. Femur was sized to a 7 the tibia to a 7. Appropriate cutting block applied to the femur the anterior posterior, and chamfer cuts made. Flexion gap was checke d it was good. Box cut was made and the size 7 femur fit well after the lug holes were made. Femur was then finished and the tibia was subluxated and the tibial baseplate broached and reamed appropriately and trial with a 6 mm insert was excellent in flexion and extension stability. The patella tracked well. The patella was resected leaving 15 mm and a 41 trial was then seated after lug hole seating holes made. Everything fit well tracked well. The knee was stable in full extension full flexion mid range flexion. The knee was then injected with Ortho mix all tylomas were then removed the knee was then irrigated with Pulsavac soaked in Betadine for 3 minutes and then the permanent cemented into position tibia femur and patella in that order at 12 minutes the tourniquet was deflated minor bleeding points electrocautery at 14 minutes knee was flexed the trial spacer removed minor cement removal required the knee was irrigated with Pulsavac Betadine the permanent liner seated in the knee reduced and closed with #2 Vicryl for the capsule layer 2-0 Vicryl for the subcutaneous layer and standstill clips for skin appropriate dressing was applied the patient transferred recovery in satisfactory condition having tolerated the procedure well. Summary of implants ATT UNE knee system by [employer] size 7 left femur size 7 rotating platform tray size 41 patella size 7 x 6 mm rotating platform insert 2 bags of [place] G cement. DVT prophylaxis per protocol. I attest to the content of the Intraoperative Record and any orders documented therein. Any exceptions are noted below.
--- NOTE | 2023-12-22 08:45 | Discharge Summary ---
Date of Service December 23, 2023 Admission HPI Per Admitting Provider History of Present Illness (including history relevant to procedure): This 78-year-old male presents to the clinic today for his preoperative history and physical. Patient complains of a 5 to 6-year history of medial sided left knee pain that he has been managing with Euflexxa injections. He states that he was scheduled to undergo a total right knee replacement back in 2020 but had to postpone due to family issues. Patient states he has visible malalignment of his left knee. He states that the Euflexxa injections seem to be effective for about 4 to 5 months. He feels that the malalignment in the knee is affecting his gait and also contributing to some pain in his right knee. He is elected proceed with surgical intervention at this time. Review Of Systems: A 12 point review of systems was performed is unremarkable except for those things stated in the HPI past medical history. 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 6 mm anterolisthesis L4 on L5 is new from prior. Moderate to severe facet arthrosis of the mid to lower lumbar spine. Multilevel intervertebral disc space narrowing, moderate at L3-L4 and L4-L5. Moderate spondylitic spurring.IMPRESSION:1. No acute fracture identified.2. Grade 1 anterolisthesis L4 on L5 likely secondary to chronic facet disease.3. Degenerative changes as above. 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 Extensive osteophytosis with bony erosion, predominantly involving the navicular, middle and lateral cuneiforms. Probable subluxation of the right fourth and fifth tarsometatarsal joints. 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 Allergies and Sensitivities: NKA Current Home Meds: (Last Updated 11/25 12:56) buPROPion (Wellbutrin SR 150 mg/12 hours oral tablet, extended release) 150 mg PO Daily dapagliflozin (Farxiga 10 mg oral tablet) 10 mg PO Daily diabetes supplies (FreeStyle Lite Test Strips 100 ct) use to test blood sugar 1--2 times per day diabetes supplies (FreeStyle [place] Lite Glucose Monitor) use to check blood sugar donepezil (Aricept 5 mg oral tablet) 5 mg PO qhs fenofibrate (fenofibrate 160 mg oral tablet) 160 mg PO Daily metFORMIN (metFORMIN 1000 mg oral tablet) TAKE 1 TABLET BY MOUTH TWO TIMES DAILY multivitamin 1 tab PO Daily omega-3 polyunsaturated fatty acids (Fish Oil 1000 mg oral capsule) semaglutide (Rybelsus 14 mg oral tablet) 14 mg PO Daily Take 30-60 min prior to first meal of the day simvastatin (simvastatin 40 mg oral tablet) 40 mg PO qhs sodium hyaluronate (Euflexxa 10 mg/mL intra-articular solution) 20 mg intra- articular q7days L KNEE DJD M17.12 traMADol (traMADol 50 mg oral tablet) 50 mg PO q6h PRN: as needed for pain not to exceed 400 mg/day unlisted medication (FREESTYLE LITE TEST STRIP) use to check blood sugar Initial Wt: 11/25 83.4 kg 183 lb Principal Diagnosis Osteoarthritis left knee Discharge Data Allergies Allergy/AdvReac Type Severity Reaction Status Date / Time No Known Allergies Allergy Verified 12/22/23 05:51 Vaccinations None Consultations None Procedures Performed Operation Date: 12/22/23 07:00 <No data on this case meets the specified criteria> Cemented left total knee replacement Ordered Studies 12/22/23 07:01 US - OR guided needle placemen Stat Hospital Course (1) Status post left knee replacement: Plan Continue care management for total knee replacement Total Time Total Time Spent Total Time Spent (In Minutes): 5 minutes Discharge Plan Discharge Items Patient Disposition: Home - Home Health Services Reason For Visit: Left Knee Osteoarthritis Discharge Diagnosis: Left knee s/p total knee replacement Condition on Discharge: Good Activity: Per Instructions section Lifting: No more than 5 pounds Bathing: Keep incision dry Sexual Activity: Wait until after follow-up appointment Exercise/Sports: Wait until after follow-up appointment Driving/Machine Use: No driving until cleared by Dr. Doe Weightbearing: Full weightbearing Non-emergency contact: Surgeon Call non-emergency contact if: you have any medication questions, your pain is not controlled, your temperature is above 101.5, your wound has increased redness, your wound has increased drainage and your wound pain has increased Follow-up/Referrals: Nancy Angel MD [Primary Care Provider] - Diet: Carb Consistent or DM2 Addtl Attending Provider Instructions: DIET: * Resume previous diet. MEDICATIONS: * Please take your prescriptions as instructed at your pre-op appointment and/or see medication discharge instructions listed above. * If concerns develop, call your physician's office at . SPECIAL CARE INSTRUCTIONS: * Ice/Elevate as instructed. * Keep dressing clean, dry, intact. * Your surgical extremity may be discolored due to prepping agents used on the skin. A bluish-green tint is a normal variant and should not cause alarm. Call your doctor at [phone] if: * Temperature above 101 degrees * Pain not relieved by pain medicine ordered * There is increased drainage or redness from any incision * You have any unanswered questions, problems or concerns. FOLLOW UP VISIT: * If not already scheduled, please call the office at to schedule a follow-up appointment. New Medicine: * You will likely be taking one or more of these medications: 1. Percocet - Take, as directed, when you need it, every four to six hours to control your pain. 2. Iron Sulfate - Take three times each day for the month after surgery to help you replace the blood lost during surgery. 3. Coumadin - Thins your blood to lessen the chance of forming a blood clot. The dose of this is different for each person and is based on your blood tests that are done twice a week. * The most common side effects of pain medicine and iron are nausea and constipation. If nausea or constipation is too much of a problem or if you have any questions about your new medicines or doses, call [facility] at . We will try to help you manage these issues. "VERY IMPORTANT TO READ AND REVIEW" Blood Clots and Blood Thinning Medicine: * You are given Coumadin during the immediate post-operative period to lessen the risk of blood clots forming in your legs and/or lungs. Coumadin is usually given for six weeks after surgery. * The prescription is for 2 mg tablets. At discharge, you should understand your dose and take it all at the same time every day, preferably after dinner. * You need to get your blood checked 1 - 2 times per week for six weeks or as directed. * If your dose needs to change, we will call you. Do not take your medication on the day of the blood test until we call you. Pain: * The immediate post-operative period after knee replacement surgery is often quite painful. * You are given a prescription for pain medicine. You should take it, as directed, when you need it, especially before physical therapy and before going to bed. Pain that interferes with sleep is very common and can last several months. * You will likely need pain medicine for the first four to six weeks. It will not stop all of the pain. The pain will lessen and as you feel better, you may change to milder pain medicine such as Tylenol. * The most common side effects of pain medicine are nausea and constipation, so don't take more than you need. Physical Therapy: * You will have physical therapy two or three times each week for four to six weeks after your surgery in order to regain your knee range of motion and to retrain your knee to work properly. * It is just as important to make sure you are getting your knee perfectly straight as it is to regain your knee bend. * Taking a pain pill an hour before therapy can help you have a more productive and comfortable therapy session if needed. Home Exercise: * You were shown a series of exercises (heel props, heel slides, etc.) in the hospital. Do these exercises three to four times each day including the exercises you were shown in physical therapy. Walking: * Get up and walk several times each day. For the first four weeks, try not to stand or walk for more than one hour at a time. If you do stand or walk for more than one hour, you will not hurt anything, but your knee and leg will likely swell. * As you feel comfortable, you may change from the walker or crutches to a cane and then to independent walking. SELF CARE INSTRUCTIONS AFTER TOTAL KNEE REPLACEMENT A. You may need to continue a physical therapy program after discharge from the hospital. There are several options available to you. Your doctor will assist you in selecting the best one for you. 1. An out-patient facility 2 to 3 times a week for therapy or home therapy. 2. Continue working on all exercises taught to you in the hospital. Your goals should be to increase bending of your knee to 90 degrees and beyond and to fully straighten your knee. B. You may progress at your own pace from walking with a walker or crutches to a cane; then to no assistive devices. C. Make walking a part of your daily routine. Be up as much as comfortable w ith rest periods throughout the day. Rest with leg elevation is very important. Use the ice wrap frequently for the first 3-4 weeks. D. There are no restrictions on activities. You may ride in a car, shop, participate in reprographics technician and all social activities. E. Wear the long elastic stockings (MICHELLE hose) 20 hours a day for six weeks after surgery. They can be removed several times a day for laundering and for a shower. F. Do not place a pillow behind your knee when resting. A pillow at your ankle is okay. VERY IMPORTANT TO READ AND REVIEW A. Take Coumadin, Aspirin or Lovenox (blood thinning medications) as directed by your doctor. If on Coumadin, have a pro-time (blood test) drawn according to your doctor's instructions. This will tell the doctor how well the Coumadin is thinning your blood. 1. YOU WILL BE GIVEN AN ORDER AT DISCHARGE FOR PT/INR (BLOOD WORK). PLEASE HAVE THIS DONE INSTRUCTED. PLEASE CALL OUR OFFICE AFTER YOUR BLOODWORK IS COMPLETE SO WE CAN TRACK YOUR RESULTS. IF YOU ARE GOING TO OUTPATIENT PHYSICAL THERAPY, YOU WILL NEED TO GO TO OUTPATIENT TESTING TO HAVE IT DRAWN. B. There are a few signs you need to watch for after you are home. Call [facility] if you notice any of the followin. Increased severe knee pain. Some pain is expected especially when you exercise. 2. Increased swelling in your leg or knee; pain or swelling of the calf muscle in either lower leg. 3. Any fluid drainage from the incision. 4. Shortness of breath or chest pain. C. Please call [facility] at if you have any concerns or questions about your operation or recovery. The doctor or his nurse will return your call promptly. D. You must take antibiotics before dental work, bladder, bowel or other surgery. Call the office to obtain a prescription at least 2 days prior to your appointment. * CALL IF INCREASED PAIN, REDNESS, DRAINAGE OR FEVER GREATER THAT 101. * Sutures should be removed 12-14 days after surgery unless you are on chronic steriods, then it will be 14-18 days after surgery. Call your doctor if: * Temperature above 101 degrees F. * Pain not relieved by pain medicine ordered. * Increased drainage or redness from incision. * Notify your doctor with any questions or concerns. Use the knee immobilizer today and tomorrow. Discontinue it entirely on Wednesday morning use your walker for ambulation follow up in the office in 2 weeks as scheduled for staple removal Pending Studies at Discharge: Yes (Bone pathology) Stand-Alone Forms: My [facility] [employer], Smoking Cessation Medications and DC Order Prescriptions: No Action simvastatin 10 mg tablet 10 mg PO QPM tizanidine 4 mg tablet 4 mg PO BID PRN (Reason: muscle spasticity) Qty: 30 1RF Farxiga 10 mg tablet 10 mg PO HS Rybelsus 14 mg tablet 14 mg PO QAM tramadol 50 mg tablet 50 mg PO Q8H PRN (Reason: pain) Qty: 30 0RF Rx Instructions: take one tablet every 8 hours as needed for severe pain bupropion HCl [Wellbutrin SR] 150 mg tablet sustained-release 12 hr 150 mg PO QAM fenofibrate 160 mg Tablet 160 mg PO QAM multivitamin Tablet 1 tab PO QAM donepezil 5 mg Tablet 5 mg PO HS metformin 1,000 mg tablet 1,000 mg PO BID Fish Oil Capsule 1 cap PO DAILY cholecalciferol (vitamin D3) 1,250 mcg (50,000 unit) capsule 50,000 unit PO UD Rx Instructions: take one capsule per week with meal Admission Data Admit Date/Time: 12/22/23 08:59 Attending Provider: Hamilton Doe Admit Provider: Hamilton Doe Primary Care Provider: Nancy Angel
--- NOTE | 2023-12-22 08:46 | Orthopedic Progress Note ---
Date of Service December 22, 2023 Orthopedic Progress Note Patient tolerated left total knee replacement well and denies any chest pain shortness of breath fever chills nausea vomiting or headache. Patient's contacted. Vital signs are stable he is afebrile. Neurovascular check limited by spinal. Wound dressing clean dry and intact. X-rays pending. Assessment doing well status post left total knee replacement continue care pathway. Initiate anticoagulation tomorrow.
--- NOTE | 2023-12-22 08:50 | Operative Report ---
Post Operative Report Pre & Post Diagnosis Operation Date: 12/22/23 07:00 Pre-Op Diagnosis: Left Knee Osteoarthritis Post-Op Diagnosis: Left Knee Osteoarthritis I identified the patient and participated in the time-out.: Yes Procedure Operation Date: 12/22/23 07:00 Actual Procedures p Left Total Knee Arthroplasty(Left) - Hamilton Doe MD Surgeon Hamilton Doe MD Customer Resource Specialist Maryana/Jeffy Estimated Blood Loss 25 Findings Consistent with Post-Op Diagnosis Specimens Bone pathology Description of Procedure Patient underwent regional anesthesia, and was brought to the operating suite. He underwent sedation, left lower extremity was prepped and draped in usual sterile fashion. Surgical timeout was performed. Patient underwent a left total knee arthroplasty, please see Dr. Doe's operative report for full details. As per the resident programs assistant with limb positioning, soft tissue retraction, hardware placement, wound closure, postoperative dressing placement. Patient was awakened taken to the recovery room in stable condition. I attest to the content of the Intraoperative Record and any orders documented therein. Any exceptions are noted below.
--- NOTE | 2023-12-22 09:03 | Operative Report ---
Post Operative Report Pre & Post Diagnosis Operation Date: 12/22/23 07:00 Pre-Op Diagnosis: Left Knee Osteoarthritis Post-Op Diagnosis: Left Knee Osteoarthritis I identified the patient and participated in the time-out.: Yes Procedure Operation Date: 12/22/23 07:00 Actual Procedures p Left Total Knee Arthroplasty(Left) - Hamilton Doe MD Surgeon SNEHA Doe MD Wafer Cutter Maryana/Jeffy CHAWLA Estimated Blood Loss 25 Findings Consistent with Post-Op Diagnosis see operative report Specimens see operative report Drains none Complications none Disposition Accompanied Patient To Recovery: Yes Indications This 78 year old male dented to the office complaints of persisting left knee pain. He had tried conservative care measures without lasting improvement. He elected to proceed with surgical intervention after being educated about potential risks and outcomes. Preoperative imaging was obtained. Description of Procedure The patient was administered a spinal anesthetic and then taken to the operating room where he was given sedation. He was prepped and draped in the usual sterile fashion. Please see Dr. Doe's operative report for specifics of the procedure. I was present for the entire case from initial patient positioning through final wound closure. Assistance was provided in tissue retraction, hemostasis, trial implant placement, final implant placement, and final wound closure. The patient was taken to the recovery room in satisfactory condition. I attest to the content of the Intraoperative Record and any orders documented therein. Any exceptions are noted below.
--- NOTE | 2023-12-22 09:04 | XRay Report ---
TWO VIEWS LEFT KNEE CLINICAL HISTORY: Postoperative examination. FINDINGS: AP and crosstable lateral portable views of the left knee are obtained. A left knee arthrop lasty is in near anatomic alignment. There has been undersurface remodeling of the patella. No acute fracture is seen. There are expected postoperative changes around the knee including skin clips, soft tissue edema, and subcutaneous gas. IMPRESSION: Expected postoperative changes status post left knee arthroplasty. No acute fracture is s een. ACT 112: Negative or not required by law. Electronically signed by: Marvin Pinto M.D. 12/22/2023 9:03 AM
--- NOTE | 2023-12-22 09:55 | Anesthesiology Progress Note ---
Date of Service December 22, 2023 Anesthesia Post Procedure Vital Signs Vital Signs: Temp Pulse Pulse Resp BP Pulse Ox O2 Del Method 12/22/23 09:45 36.3 C L 45 L 15 119/62 99 Nasal Cannula 12/22/23 09:35 44 L 17 115/58 L 98 Nasal Cannula 12/22/23 09:25 43 L 13 107/53 L 99 Nasal Cannula 12/22/23 09:15 44 L 15 116/48 L 99 Nasal Cannula 12/22/23 09:05 46 L 18 122/69 99 Nasal Cannula 12/22/23 08:55 55 L 23 116/67 100 Nasal Cannula 12/22/23 08:48 36.0 C L 68 15 115/71 98 Oxymask 12/22/23 05:39 37 C 52 L 20 124/73 94 Room Air O2 Flow Rate 12/22/23 09:45 2 12/22/23 09:35 2 12/22/23 09:25 2 12/22/23 09:15 2 12/22/23 09:05 2 12/22/23 08:55 2 12/22/23 08:48 4 12/22/23 05:39 Transfer of Care Handoff Completed per policy Notes Mental Status: alert / awake / arousable Patient Amnestic to Procedure: Yes Nausea / Vomiting: adequately controlled Pain: adequately controlled Airway Patency, RR, SpO2: stable & adequate BP & HR: stable & adequate Hydration State: stable & adequate Neuraxial Anesthesia: was administered and sensory block is resolving Anesthetic Complications: no major complications apparent
[2023-12-22] MEDS ORDERED: bisacodyL 10 MG SUPP PR PRN (10:57)
[2023-12-22] MEDS ORDERED: ALUMINUM/MAGNESIUM SUSP 30 ML UDC PO PRN (10:57)
[2023-12-22] MEDS ORDERED: MAGNESIUM HYDROXIDE SUSP 30 ML UDC PO PRN (10:57)
[2023-12-22] MEDS ORDERED: diphenhydrAMINE 50 MG/ML VIAL IV PRN (10:57)
[2023-12-22] MEDS ORDERED: HYDROmorphone INJ 0.5 MG/0.5 ML SYR IV PRN (10:57)
[2023-12-22] MEDS ORDERED: KETOROLAC TROMETHAMINE 15 MG/ML VIAL IV PRN (10:57)
[2023-12-22] MEDS ORDERED: tiZANidine HCL 4 MG TABLET PO PRN (10:57)
[2023-12-22] MEDS ORDERED: TAMSULOSIN HCL 0.4 MG CAP PO PRN (10:57)
[2023-12-22] MEDS ORDERED: METOCLOPRAMIDE HCL INJ 5 MG/ML 2 ML VIAL IV PRN (10:57)
[2023-12-22] MEDS ORDERED: PHARMACY GLYCEMIC MGMT CONSULT PRN (10:57)
[2023-12-22] MEDS ORDERED: GLUCOSE 10 TAB/TUBE PO PRN (11:45)
[2023-12-22] MEDS ORDERED: CARBOHYDRATES FOR HYPOGLYCEMIA PO PRN (11:45)
[2023-12-22] MEDS ORDERED: GLUCAGON FOR INJ 1 MG VIAL IM PRN (11:45)
[2023-12-22] MEDS ORDERED: GLUCOSE 40% GEL 15 GM TUBE PO PRN (11:45)
[2023-12-22] MEDS ORDERED: DEXTROSE 50% 50 ML SYRINGE IV PRN (11:45)
--- NOTE | 2023-12-22 12:39 | Pharmacy Report ---
Pharmacy Glycemic Short Note 2 - Date of Service December 22, 2023 - Glycemic Short BSG Results (Last 24 hours): 12/22/23 12/22/23 05:41 08:52 POC Glucose 135 H 149 H OUTPATIENT ANTIDIABETIC REGIMEN: * metformin 1 gm bid, farxiga 10 mg daily, semaglutide 14 mg ASSESSMENT: * 78 year old s/p surgery, POD 0 - pharmacy consulted for glycemic management. Plan to start weight based stress of 2 dosing for novolog. No steroids given intraoperatively. Will hold basal insulin. PLAN FOR INPATIENT GLYCEMIC CONTROL: * Hold outpatient oral diabetes medications * Basal insulin * Lantus - hold * Bolus insulin * NovoLog per scale ACHS or Q6hrs while NPO * Goal Range: Low 110 mg/dL - High 140 mg/dL * Correction Factor: 30 mg/dL/unit * Nutritional / Prandial insulin per carb ratio of 1 unit per 10 grams CHO consumed
[2023-12-22] MEDS: INSULIN ASPART PER UNIT CHARGE SC SCH (12:52)
--- NOTE | 2023-12-22 14:05 | Orthopedic Progress Note ---
Date of Service December 22, 2023 Assessment & Plan Admission and Anticipated Discharge Date Admission Date: December 22, 2023 Orthopedic Progress Note Postop check patient doing well. He is already been up and ambulating. He denies chest pain shortness of breath fever chills nausea vomiting or headache. Vital signs are stable he is afebrile. Neurovascular check femoral sciatic nerve is intact. Wound dressing clean dry and intact. Postop x-rays look excellent. Assessment doing well continue care pathway discharge home tomorrow after PT OT. Initiate anticoagulation tomorrow.
[2023-12-22] MEDS: buPROPion SR 150 MG TABCR PO SCH (14:13)
[2023-12-22] MEDS: SODIUM CHLORIDE 0.9% 1,000 ML IV SCH (14:14)
[2023-12-22] MEDS: MULTIVITAMIN TAB PO SCH (14:14)
[2023-12-22] MEDS: DOCUSATE SODIUM 100 MG CAP PO SCH (14:14)
[2023-12-22] MEDS: oxyCODONE HCL IR 5 MG TAB (IMMEDIATE RELEASE) PO PRN (17:03)
[2023-12-22] MEDS: FERROUS GLUCONATE 324 MG TAB PO SCH (18:00)
[2023-12-22] MEDS: ASCORBIC ACID 500 MG TAB PO SCH (18:01)
[2023-12-22] MEDS ORDERED: NON-FORMULARY MEDICATION (Dapagliflozin Propanediol [Farxiga] 10 mg tablet) PO SCH (21:00)
[2023-12-22] MEDS: SENNA 8.6 MG TAB PO SCH (21:03)
[2023-12-22] MEDS: SIMVASTATIN 10 MG TAB PO SCH (21:03)
[2023-12-22] MEDS: DONEPEZIL HCL 5 MG TAB PO SCH (21:04)
[2023-12-22 23:53] VITALS: TEMP 97.9
--- NOTE | 2023-12-23 06:04 | Orthopedic Progress Note ---
Date of Service December 23, 2023 Assessment & Plan Admission and Anticipated Discharge Date Admission Date: December 22, 2023 Orthopedic Progress Note Postop day #1 status post left total knee replacement. Patient sleeping well has minimal discomfort at present. Denies chest pain shortness of breath fever chills nausea vomiting or headache. Vital signs are stable he is afebrile. Neurovascular check femoral sciatic nerve is normal wound dressing clean dry and intact. Calves nontender. Can do a straight leg raise. Ankle pumps inversion eversion all intact. A.m. labs are pending. Assessment doing well can be discharged home today after PT OT. Initiate the onset of anticoagulation this morning. Reemphasized the need to do exercises. Went over for the for the third time his surgery and the excellent condition of the x-rays. He states he understands. Assessment doing well status post total knee replacement discharged home today after PT OT. Begin anticoagulation today.
[2023-12-23 08:12] VITALS: BP 131/61; PULSE 57; RESP 16; O2SAT 95
[2023-12-23 08:13] LABS: Hematocrit (blood only) 37.7 % (42.0-52.0); Hemoglobin 12.6 g/dl (14.0-18.0); Mean Corpuscular Hemoglobin 29.9 pg (25.0-34.0); Mean Corpuscular Hgb Conc 33.4 g/dL (32.0-36.0); Mean Corpuscular Volume 89.5 fL (80.0-100.0); Mean Platelet Volume 10.1 fL (9.4-12.4); Platelet Count 183 K/uL (130-400); RDW Coefficient of Variation 13.2 % (11.5-14.5); RDW Standard Deviation 42.7 fL (36.4-46.3); Red Blood Count 4.21 M/uL (4.70-6.10); White Blood Count 8.75 K/ul (4.8-10.8)
[2023-12-23 08:28] LABS: Calcium 9.5 mg/dl (8.6-10.3); Potassium 4.1 mmol/L (3.5-5.1)
[2023-12-23 08:34] LABS: BUN Creatinine Ratio 31.7 (10-20); Creatinine Clr Calc Pharmacy 64.2 ml/min; Est GFR (African American) 82.2 ml/min; Est GFR (Non-African American) 70.9 ml/min
[2023-12-23] MEDS: APIXABAN 2.5 MG TAB PO SCH (08:44)
--- NOTE | 2023-12-23 10:29 | Orthopedic Progress Note ---
Date of Service December 23, 2023 Assessment & Plan (1) Status post left knee replacement: Plan: The patient was educated regarding today's findings. The postsurgical dressings were changed by me. Rupesh stocking was applied. Written discharge instructions were provided. Keep the knee immobilizer on when out of bed today and tomorrow. It can be discontinued entirely on Wednesday morning. Her postsurgical dressings can be changed on Wednesday if needed for soiling. They may also be left in place if they are dry. Ice and elevate the knee frequently to reduce pain and swelling. Use the walker for ambulation and standing. Home health has been arranged. Follow-up visit with me in the office on January 05 for staple removal. Call the office with any other concerns. Admission and Anticipated Discharge Date Admission Date: December 22, 2023 Subjective This 78-year-old male is seen today in his room. He is 1 day status post left total knee arthroplasty. He states he is doing well. He has already been up and walking in the hallway. He denies any chest pain, shortness of breath, nausea, vomiting, or abdominal pain. His knee pain has been well-controlled. He feels ready for discharge to home today. He states his pain was controlled overnight and he is pleased with his experience so far. Review of Systems Review of Systems: Unchanged from yesterday. Physical Exam Physical Exam: General: Well-developed, well-nourished, elderly male, in no acute distress. Sitting in a bedside chair. Alert and oriented. He has already finished breakfast. Skin: Warm and dry with good turgor. No rashes. Postsurgical dressing is in place on the left leg. Upon removal, he has scant dried blood on his inner dressing. Eugene are in place. Wound edges are well-approximated. No erythema or warmth. No significant edema. No ecchymosis. No active bleeding. Musculoskeletal: Left knee evaluation reveals intact quad set and straight leg raise for the left leg. He has full terminal extension. Flexion to greater than 65 degrees. He has intact motor function to his ankle and toes as well. He is ambulating in the hallway with a mild limp using his walker. Neurologic: Gross sensation is intact across the left leg by soft touch. Peripheral pulses are 2+. Results & Data Vital Signs (Past 12 Hours) Vital Signs Temp Pulse Resp BP Pulse Ox O2 Del Method 12/23/23 08:11 36.6 C 57 L 16 131/61 95 Room Air 12/23/23 04:05 36.6 C 62 18 117/48 L 96 Room Air 12/22/23 23:51 36.6 C 62 18 135/68 96 Room Air Laboratory Results CBC obtained this morning shows a white count of 8.75. H&H of 12.6 and 37.7. Platelets 183,000. Electrolytes are unremarkable. BUN of 32 and creatinine 1.01. BUN has slightly increased from preop and is likely due to mild dehydration. Glucose this morning is 173.
== END 2023-12-23 12:00 | disposition home health service (06) ==
LOC: ASU 05:16 → PACUINP 05:16 → 3W 12:47